=== PATIENT | male | born 2000 | race Hispanic/Latino ===

== ENCOUNTER 2021-05-04 14:45 | Observation (INO) | payer BC ==
[~2021-05-04] VITALS: Ht 165.1 cm; Wt 59.4 kg
[2021-05-04 20:00] VITALS: BP 134/64
[2021-05-04] MEDS ORDERED: ACETAMINOPHEN 325 MG TAB PO PRN (20:00)
[2021-05-04 20:27] VITALS: BP 134/64
[2021-05-04 20:33] LABS: BASOPHILS % 0.5 % (0.0-1.0); EOSINOPHILS # (AUTO) 0.1 (0.0-0.4); EOSINOPHILS % 0.6 % (0.0-6.0); HEMATOCRIT 44.4 % (38.2-49.6); HEMOGLOBIN 14.6 g/dL (14.0-18.0); LYMPHOCYTES # (AUTO) 1.8 (1.0-3.2); LYMPHOCYTES % 20.9 % (18.0-39.1); MEAN CORPUSCULAR HEMOGLOBIN 29.7 pg (28-32); MEAN CORPUSCULAR HGB CONC 32.9 g/dL (31-35); MEAN CORPUSCULAR VOLUME 90.2 fL (81-99); MONOCYTES # (AUTO) 0.6 (0.2-0.8); MONOCYTES % 7.2 % (4.4-11.3); NEUTROPHILS # (AUTO) 5.9 (2.1-6.9); NEUTROPHILS % 70.4 % (38.7-80.0); PLATELET COUNT 262 x10e3/uL (140-360); RED BLOOD COUNT 4.92 x10e6/uL (4.3-5.7); RED CELL DISTRIBUTION WIDTH 13.7 % (11.7-14.4)
[2021-05-04 20:45] LABS: INR 0.96; PROTHROMBIN TIME 13.7 seconds (11.9-14.5)
[2021-05-04 20:53] LABS: ALBUMIN 4.6 g/dL (3.5-5.0); ALBUMIN/GLOBULIN RATIO 1.2 (0.8-2.0); ANION GAP 12.4 mmol/L (8-16); CREATININE, SERUM 0.92 mg/dL (0.72-1.25); MAGNESIUM 2.3 MG/DL (1.3-2.1); PHOSPHORUS 3.1 MG/DL (2.3-4.7); POTASSIUM 3.4 mmol/L (3.5-5.1)
[2021-05-04 21:00] VITALS: BP 134/64
[2021-05-05] VITALS (7 sets, daily range): BP systolic 113–126; BP diastolic 53–69
[2021-05-05] MEDS ORDERED: LIDOCAINE HCL 1% LOCAL INJ 20 ML VIAL ONE (09:01)
[2021-05-05] MEDS ORDERED: SODIUM CHLORIDE 0.9% 250ML 250 ML ONE (09:13)
[2021-05-05 10:45] LABS: APPEARANCE,CSF CLEAR (CLEAR); COLOR,CSF COLORLESS (COLORLESS); TUBE NUMBER 3; WHITE BLOOD CELL,CSF 1 cells/uL (0-5)
[2021-05-05] MEDS ORDERED: POTASSIUM CHLORIDE 20 MEQ TAB CR PO ONE ×2 (13:00→15:00)
[2021-05-05] MEDS ORDERED: CEFTRIAXONE 2 GM in SODIUM CHLORIDE 0.9% 100 ML IV SCH (15:00)
[2021-05-05] MEDS ORDERED: [UNRECOGNIZED DRUG - CODE] IM ×2 (19:16→19:20)
== END 2021-05-05 20:18 | disposition home or self-care (01) ==
LOC: IMCU 19:40 → MED/SURG2 05-05 17:17
PROVIDERS: ADMIT Internal Medicine; ATTEND Internal Medicine
DX: A53.9 Syphilis, unspecified (principal); Z20.822 Contact with and (suspected) exposure to COVID-19
CPT/HCPCS: 36415 ×2; 62328; 71045; 74470; 80053; 82945; 83735; 84100; 84157; 85025; 85610; 86592; 86780; 89051; 93005; G0378 ×2; J0696; J2001; J7050 ×2; U0002

== ENCOUNTER 2021-05-07 07:10 | Emergency (ER) | payer BC ==
[~2021-05-07] VITALS: Ht 165.1 cm; Wt 59.4 kg
[~2021-05-07 07:10] MED LIST: [UNRECOGNIZED DRUG - CODE] IM
[2021-05-07] MEDS ORDERED: LACTATED RINGER'S 1,000 ML INJ ONE (07:30)
[2021-05-07] MEDS ORDERED: ONDANSETRON HCL INJ 2MG/ML 2ML 2 MG/ML VIAL IV STA (07:30)
[2021-05-07] MEDS ORDERED: CAFFEINE/SODIUM BENZOATE 500 MG/2ML VIAL IV ONE (07:30)
[2021-05-07] MEDS ORDERED: METOCLOPRAMIDE HCL 10 MG/2ML VIAL IV ONE (07:30)
[2021-05-07] MEDS ORDERED: KETOROLAC TROMETHAMINE 30 MG/ML VIAL IV STA (07:30)
[2021-05-07] MEDS ORDERED: DIPHENHYDRAMINE HCL INJ 50 MG/ML VIAL IV STA (07:30)
[2021-05-07] MEDS ORDERED: ACETAMIN/BUTALBITAL/CAFFEINE TAB PO ONE (09:00)
== END 2021-05-07 10:16 | disposition home or self-care (01) ==
LOC: ER 07:15
DX: G97.1 Other reaction to spinal and lumbar puncture (principal)
CPT/HCPCS: 99284; J1200; J1885; J2405; J2765; J7121